=== PATIENT | male | born 1975 | race Caucasian/White ===

== ENCOUNTER 2024-06-13 14:44 | Emergency (ER) | payer MEDICAID, SELFPAY ==
--- NOTE | ~2024-06-13 | XR_ITS ---
EXAMINATION: XR KNEE, BILATERAL CLINICAL INFORMATION: Knee pain COMPARISON: None available. TECHNIQUE: Two views of each knee. FINDINGS: Moderate medial and mild patellofemoral/lateral compartment osteoarthritis of both knees, with moderate left greater than right knee joint effusions. No fracture. XR/XR knee RT 2V IMPRESSION: Moderate medial and mild patellofemoral/lateral compartment osteoarthritis of both knees with knee joint effusions. No fracture. Electronically signed by: Phill Levi MD 06/13/2024 07:07 PM [facility]
--- NOTE | ~2024-06-13 | XR_ITS ---
EXAMINATION: XR KNEE, BILATERAL CLINICAL INFORMATION: Knee pain COMPARISON: None available. TECHNIQUE: Two views of each knee. FINDINGS: Moderate medial and mild patellofemoral/lateral compartment osteoarthritis of both knees, with moderate left greater than right knee joint effusions. No fracture. XR/XR knee LT 2V IMPRESSION: Moderate medial and mild patellofemoral/lateral compartment osteoarthritis of both knees with knee joint effusions. No fracture. Electronically signed by: Phill Levi MD 06/13/2024 07:07 PM [facility]
[2024-06-13 14:45] VITALS: BP 181/104; PULSE 96; RESP 16; TEMP 37.6; O2SAT 93; BMI 49.6
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
--- OUTSIDE RECORDS SUMMARY | 2024-06-13 15:39 | XMS_ITS | Data Portability ---
Author Organization [facility], , [facility] Address [address] [place] [address] Care Team Providers Care Court Clerk Name Role Phone PATRICIONILESHWESTON Primary Care Provider [phone] SARWAT PEREZ Power Crane Operator Unavailable SAUL SCHUMACHER Power Crane Operator Unavailabl e Assessment Encounter Date Assessment Date Assessment LastModified by Organization Details LastModified Time 05/08/2014 05/08/2014 ingrown toenail lateral border right hallux jerskine Not available 05/08/2014 11:29:36 Plan of Treatment Reminders Order Date Submit Date Provider Last Modified By Organization Details Last Modified Time Details Appointments None recorded. Lab urinalysi s, complete 2014 015 [facility], [address] [place] [address], [address], 5 14:37:44 CMP, serum or plasma 2014 015 [facility], [address] [place] [address], [address], 5 11:15:51 lipid panel, serum 2014 015 [facility], [address] [place] [address], [address], 5 11:15:52 TSH, serum or plasma 2014 015 [facility], [address] [place] [address], [address], 5 11:27:53 CBC 2014 015 [facility], [address] [place] [address], [address], 5 10:16:01 BMP, serum or plasma 2014 015 [facility], [address] [place] [address], [address], 5 12:50:04 culture, bacterial - right great toe infection 2014 015 [facility], [address] [place] [address], [address], 5 11:47:38 Referral podiatris t referral - right hallux appears ingrown. 2013 014 rtorromer Wu DPM, [address], [place], [address], 4 14:22:18 sleep medicine referral - morbidly obese, daily headaches , snoring with witnessed apneic events at home. New diagnosis of HTN. Please evaluate and treat for possible CARLYN. [address] [facility], [address] [facility], [facility] [address], [place], [address], 5 08:17:23 podiatris t referral - Pt known to you with right great ingrown toenail resection that never healed completel y, but then was injured. Pt now has significa nt swelling, pain and drainage from surgical site. Please evaluate and treat. Imaging ordered to r/o osteomyel itis. 2014 015 kashif Wu DPNed, [address], [place], [address], 5 10:37:01 Procedures None recorded. Surgeries None recorded. Imaging x-ray, great toe - right great toe infected , swollen and tender- r/o osteomyel itis 2014 015 [facility] (Imaging), [address], [place], [address], 5 08:29:30 Medication Orders hydrochlo rothiazid e 25 mg tablet 2014 015 [id number] [address] [place], [address], 5 10:16:01 hydrochlo rothiazid e 25 mg tablet 2014 015 [id number], [address] [place], [address], 5 18:37:23 Bactrim DS 800 mg-160 mg tablet 2014 015 [id number], [address] [place], [address], 5 18:09:09 Patient TargetsNo targets recorded. Patient Instructions Encounter Date Encounter Id Patient Instructions Last Modified By Organization Details Last Modified Time 05/08/2014 [id number] Patient to retur n in one week. jerskine Not available 05/08/2014 11:29:36 Reason for Referral Business Assistant Referral for Pain in toe right hallux appears ingrown. Referring Physician: Weston Rodgers, Family Medicine, Encounter Date: 04/17/2014 morbidly obese, daily headac hes, snoring with witnessed apneic events at home. New diagnosis of HTN. Please evaluate and treat for possible CARLYN. Referring Physician: Melita Dorado [facility], Encounter Date: 08/21/2014 Business Assistant Referral for Cell ulitis and abscess of toe Pt known to you with right great ingrown toenail resection that never healed completely, but then was injured. Pt now has significant swelling, pain and drainage from surgical site. Please evaluate and treat. Imaging ordered to r/o osteomyelitis. Referring Physician: Melita Dorado [facility], Encounter Date: 10/19/2014 Results Created Date Observation Date Name Description Value Unit Range Abnormal Flag Note LastModifiedBy Organization Detail LastModifiedTime 08/22/19 15 08/22/2014 urina lysis compl ete, refle x cultu re color YELLOW yellow normal Not Available [facility] [place] [facility] [address], [place], [address], 08/22/2014 08:10:08 08/22/19 15 08/22/2014 urina lysis compl ete, refle x cultu re appearance CLEAR clear normal Not Available [facility] [place] [facility] [address], [place], [address], 08/22/2014 08:10:08 08/22/19 15 08/22/2014 urina lysis compl ete, refle x cultu re specific gravity 1.005 1.001- 1.035 normal Not Available [facility] [place] [facility] [address], [place], [address], 08/22/2014 08:10:08 08/22/19 15 08/22/2014 urina lysis compl ete, refle x cultu re pH 7.0 5.0-8. 0 normal Not Available [facility]- [address], [place], [address], 08/22/2014 08:10:08 08/22/19 15 08/22/2014 urina lysis compl ete, refle x cultu re glucose NEGATI VE negati ve normal Not Available [facility] [place] [facility] [address], [place], [address], 08/22/2014 08:10:08 08/22/19 15 08/22/2014 urina lysis compl ete, refle x cultu re bilirubin NEGATI VE negati ve normal Not Available [facility] [place] [facility] [address], [place], [address], 08/22/2014 08:10:08 08/22/19 15 08/22/2014 urina lysis compl ete, refle x cultu re ketones NEGATI VE negati ve normal Not Available [facility] [place] [facility] [address], [place], [address], 08/22/2014 08:10:08 08/22/19 15 08/22/2014 urina lysis compl ete, refle x cultu re occult blood NEGATI VE negati ve normal Not Available [facility] [place] [facility] [address], [place], [address], 08/22/2014 08:10:08 08/22/19 15 08/22/2014 urina lysis compl ete, refle x cultu re protein NEGATI VE negati ve normal Not Available [facility] [place] [facility] [address], [place], [address], 08/22/2014 08:10:08 08/22/19 15 08/22/2014 urina lysis compl ete, refle x cultu re nitrite NEGATI VE negati ve normal Not Available [facility] [place] [facility] [address], [place], [address], 08/22/2014 08:10:08 08/22/19 15 08/22/2014 urina lysis compl ete, refle x cultu re leukocyte esterase NEGATI VE negati ve normal Not Available [facility] [place] [facility] [address], [place], [address], 08/22/2014 08:10:08 08/22/19 15 08/22/2014 urina lysis compl ete, refle x cultu re WBC NONE SEEN /hpf < or = 5 normal Not Available [facility] [place] [facility] [address], [place], [address], 08/22/2014 08:10:08 08/22/19 15 08/22/2014 urina lysis compl ete, refle x cultu re RBC NONE SEEN /hpf < or = 2 normal Not Available [facility] [place] [facility] [address], [place], [address], 08/22/2014 08:10:08 08/22/19 15 08/22/2014 urina lysis compl ete, refle x cultu re squamous epithelial cells NONE SEEN /hpf < or = 5 normal Not Available [facility] [place] [facility] [address], [place], [address], 08/22/2014 08:10:08 08/22/19 15 08/22/2014 urina lysis compl ete, refle x cultu re bacteria NONE SEEN /hpf none seen normal Not Available [facility] [place] [facility] [address], [place], [address], 08/22/2014 08:10:08 08/22/19 15 08/22/2014 urina lysis compl ete, refle x cultu re hyaline cast NONE SEEN /lpf none seen normal Not Available [facility] [place] [facility] [address], [place], [address], 08/22/2014 08:10:08 08/22/19 15 08/22/2014 cultu re, urine reflexive urine culture NO CULTUR E INDICA BRAULIO Not Available [facility] [place] [facility] [address], [place], [address], 08/22/2014 08:10:11 08/22/19 15 08/22/2014 CBC WBC 10.8 K/??L 4.2-9. 1 high Not Available [address], [address], 08/22/2014 08:50:34 08/22/19 15 08/22/2014 CBC RBC 5.19 M/??L 4.63-6 .08 Not Available [address], [address], 08/22/2014 08:50:34 08/22/19 15 08/22/2014 CBC HGB 16.7 g/dL 13.7-1 7.5 Not Available [address], [address], 08/22/2014 08:50:34 08/22/19 15 08/22/2014 CBC HCT 50.1 % 40.1-5 1.0 Not Available [address], [address], 08/22/2014 08:50:34 08/22/19 15 08/22/2014 CBC MCV 96.5 ??L 79.0-9 2.2 high Not Available [address], [address], 08/22/2014 08:50:34 08/22/1908/22/2014 CBC MCH 32.2 pg 25.7-3 2.2 Not Available [address], [address], 08/22/2014 08:50:34 08/22/19 15 08/22/2014 CBC MCHC 33.3 g/dL 32.3-3 6.5 Not Available [address], [address], 08/22/2014 08:50:34 08/22/1908/22/2014 CBC plt 395.0 K/??L 163.0- 337.0 high Not Available [address], [address], 08/22/2014 08:50:34 08/22/1908/22/2014 CBC MPV 10.7 9.4-12 .4 Not Available [address], [address], 08/22/2014 08:50:34 08/22/1908/22/2014 CBC neut% 64.0 % 34.0-6 7.9 Not Available [address], [address], 08/22/2014 08:50:34 08/22/1908/22/2014 CBC neut# 6.9 1.8-5. 4 high Not Available [address], [address], 08/22/2014 08:50:34 08/22/19 15 08/22/2014 CBC lymph % 27.4 % 21.8-5 3.1 Not Available [address], [address], 08/22/2014 08:50:34 08/22/19 15 08/22/2014 CBC lymph # 3.0 K/??L 1.3-3. 6 Not Available [address], [address], 08/22/2014 08:50:34 08/22/19 15 08/22/2014 CBC mono% 6.3 % 5.3-12 .2 Not Available [address], [address], 08/22/2014 08:50:34 08/22/19 15 08/22/2014 CBC mono# 0.7 0.3-0. 8 Not Available [address], [address], 08/22/2014 08:50:34 08/22/19 15 08/22/2014 CBC eo% 1.9 % 0.8-7. 0 Not Available [address], [address], 08/22/2014 08:50:34 08/22/1908/22/2014 CBC eo# 0.2 0.0-0. 5 Not Available [address], [address], 08/22/2014 08:50:34 08/22/19 15 08/22/2014 CBC baso% 0.4 % 0.2-1. 2 Not Available [address], [address], 08/22/2014 08:50:34 08/22/19 15 08/22/2014 CBC baso# 0.0 0.0-0. 1 low Not Available [address], [address], 08/22/2014 08:50:34 08/22/19 15 08/22/2014 CBC RDW-CV 13.1 % 11.6-1 4.4 Not Available [address], [address], 08/22/2014 08:50:34 08/22/19 15 08/22/2014 CMP, serum or plasm a glucose 93 mg/dL 70-100 Not Available [address], [address], 08/22/2014 11:15:51 08/22/19 15 08/22/2014 CMP, serum or plasm a BUN 10 mg/dL 7-18 Not Available [address], [address], 08/22/2014 11:15:51 08/22/19 15 08/22/2014 CMP, serum or plasm a creatinine 1.0 mg/dL 0.8-1. 3 Not Available [address], [address], 08/22/2014 11:15:51 08/22/19 15 08/22/2014 CMP, serum or plasm a B/C 10.0 ratio Not Available [address], [address], 08/22/2014 11:15:51 08/22/19 15 08/22/2014 CMP, serum or plasm a GFR 88.0 mL/mi n Recom lula d GFR by the Natio nal Kidne y Found ation >60 mL/mi n/1.7 3m2 - Monserrat l <60 mL/mi n/1.7 3m2 - Chron ic Kidne y Disea se <15 mL/mi n/1.7 3m2 - Kidne y Failu re Not Available [address], [address], 08/22/2014 11:15:51 08/22/19 15 08/22/2014 CMP, serum or plasm a GFR - if 106.4 mL/mi n For Afric an Ameri can patie nts: Resul ts Multi plied by 1.21 Not Available [address], [address], 08/22/2014 11:15:51 08/22/19 15 08/22/2014 CMP, serum or plasm a sodium 142 mmol/ L 136-14 5 Not Available [address], [address], 08/22/2014 11:15:51 08/22/19 15 08/22/2014 CMP, serum or plasm a potassium 4.4 mmol/ L 3.5-5. 1 Not Available [address], [address], 08/22/2014 11:15:51 08/22/19 15 08/22/2014 CMP, serum or plasm a chloride 102 mmol/ L 96-107 Not Available [address], [address], 08/22/2014 11:15:51 08/22/19 15 08/22/2014 CMP, serum or plasm a anion gap 10.2 5.0-15 .0 Not Available [address], [address], 08/22/2014 11:15:51 08/22/19 15 08/22/2014 CMP, serum or plasm a CO2 30 mmol/ L 21-32 Not Available [address], [address], 08/22/2014 11:15:51 08/22/19 15 08/22/2014 CMP, serum or plasm a calcium 10.0 mg/dL 8.5-10 .3 Not Available [address], [address], 08/22/2014 11:15:51 08/22/19 15 08/22/2014 CMP, serum or plasm a total protein 7.8 g/dL 6.4-8. 2 Not Available [address], [address], 08/22/2014 11:15:51 08/22/19 15 08/22/2014 CMP, serum or plasm a albumin 4.3 g/dL 3.4-5. 0 Not Available [address], [address], 08/22/2014 11:15:51 08/22/19 15 08/22/2014 CMP, serum or plasm a globulin 3.5 g/dL Not Available [address], [address], 08/22/2014 11:15:51 08/22/19 15 08/22/2014 CMP, serum or plasm a A/G 1.2 ratio 0.8-2. 0 Not Available [address], [address], 08/22/2014 11:15:51 08/22/19 15 08/22/2014 CMP, serum or plasm a total bilirubin 0.50 mg/dL 0.00-1 .00 Not Available [address], [address], 08/22/2014 11:15:51 08/22/19 15 08/22/2014 CMP, serum or plasm a AST 23 U/L 15-37 Not Available [address], [address], 08/22/2014 11:15:51 08/22/19 15 08/22/2014 CMP, serum or plasm a ALT 46 U/L 30-65 Not Available [address], [address], 08/22/2014 11:15:51 08/22/19 15 08/22/2014 CMP, serum or plasm a alk. phos. 74 U/L 50-136 Not Available [address], [address], 08/22/2014 11:15:51 08/22/19 15 08/22/2014 lipid panel , serum cholesterol 234 mg/dL <200 mg/dl Leonid able 200-2 39 mg/dl Borde rline High >240 mg/dl High Not Available [address], [address], 08/22/2014 11:15:52 08/22/19 15 08/22/2014 lipid panel , serum triglyceride s 166 mg/dL <150 mg/dL Monserrat l 150-1 99 mg/dL Borde rline High 200-4 99 mg/dL High >500 mg/dL Very High Not Available [address], [address], 08/22/2014 11:15:52 08/22/19 15 08/22/2014 lipid panel , serum direct HDL 46 mg/dL Not Available [address], [address], 08/22/2014 11:15:52 08/22/19 15 08/22/2014 LDL, direc t, serum direct LDL 158 mg/dL RISK CATEG ORY LDL GOAL _ CHD or CHD Risk Equiv alent s <100 mg/dl (10-y ear risk >20%) 2+ Risk Facto rs <130 mg/dl (10-y ear risk <= 20%) 0-1 Risk Facto r??? <160 mg/dl ??? Almos t all peopl e with 0-1 risk facto r have a 10 year risk <10%, thus 10 year risk asses ment in peopl e with 0-1 risk facto r is not neces serafin. Not Available [address], [address], 08/22/2014 11:15:53 08/22/19 15 08/22/2014 TSH, serum or plasm a TSH 5.85 uIU/m L 0.50-6 .00 The Ameri can Colle ge of Endoc rinol ogy and Ameri can Thyro id Assoc iatio n recom mend goal TSH value s betwe en 0.4-4 .0 mIU/m L. Not Available [address], [address], 08/22/2014 11:27:53 10/18/19 15 10/17/2014 CBC WBC 7.3 K/??L 4.2-9. 1 Not Available [address], [address], 10/17/2014 11:08:41 10/18/19 15 10/17/2014 CBC RBC 5.19 M/??L 4.63-6 .08 Not Available [address], [address], 10/17/2014 11:08:41 10/18/19 15 10/17/2014 CBC HGB 16.0 g/dL 13.7-1 7.5 Not Available [address], [address], 10/17/2014 11:08:41 10/18/19 15 10/17/2014 CBC HCT 48.6 % 40.1-5 1.0 Not Available [address], [address], 10/17/2014 11:08:41 10/18/19 15 10/17/2014 CBC MCV 93.6 ??L 79.0-9 2.2 high Not Available [address], [address], 10/17/2014 11:08:41 10/18/19 15 10/17/2014 CBC MCH 30.8 pg 25.7-3 2.2 Not Available [address], [address], 10/17/2014 11:08:41 10/18/19 15 10/17/2014 CBC MCHC 32.9 g/dL 32.3-3 6.5 Not Available [address] [place], [address], 10/17/2014 11:08:41 10/18/19 15 10/17/2014 CBC plt 360.0 K/??L 163.0- 337.0 high Not Available [address], [address], 10/17/2014 11:08:41 10/18/19 15 10/17/2014 CBC MPV 10.5 9.4-12 .4 Not Available [address], [address], 10/17/2014 11:08:41 10/18/19 15 10/17/2014 CBC neut% 54.8 % 34.0-6 7.9 Not Available [address], [address], 10/17/2014 11:08:41 10/18/19 15 10/17/2014 CBC neut# 4.0 1.8-5. 4 Not Available [address], [address], 10/17/2014 11:08:41 10/18/19 15 10/17/2014 CBC lymph % 33.5 % 21.8-5 3.1 Not Available [address], [address], 10/17/2014 11:08:41 10/18/19 15 10/17/2014 CBC lymph # 2.4 K/??L 1.3-3. 6 Not Available [address], [address], 10/17/2014 11:08:41 10/18/19 15 10/17/2014 CBC mono% 8.8 % 5.3-12 .2 Not Available [address], [address], 10/17/2014 11:08:41 10/18/19 15 10/17/2014 CBC mono# 0.6 0.3-0. 8 Not Available [address], [address], 10/17/2014 11:08:41 10/18/19 15 10/17/2014 CBC eo% 2.5 % 0.8-7. 0 Not Available [address], [address], 10/17/2014 11:08:41 10/18/19 15 10/17/2014 CBC eo# 0.2 0.0-0. 5 Not Available [address], [address], 10/17/2014 11:08:41 10/18/19 15 10/17/2014 CBC baso% 0.4 % 0.2-1. 2 Not Available [address], [address], 10/17/2014 11:08:41 10/18/19 15 10/17/2014 CBC baso# 0.0 0.0-0. 1 low Not Available [address], [address], 10/17/2014 11:08:41 10/18/19 15 10/17/2014 CBC RDW-CV 12.9 % 11.6-1 4.4 Not Available [address], [address], 10/17/2014 11:08:41 10/18/19 15 10/17/2014 T4, free, serum free T4 0.79 NG/dL 0.75-1 .54 Not Available [address], [address], 10/17/2014 12:14:09 10/18/19 15 10/17/2014 TSH, serum or plasm a TSH 3.80 uIU/m L 0.50-6 .00 The Ameri can Colle ge of Endoc rinol ogy and Ameri can Thyro id Assoc iatio n recom mend goal TSH value s betwe en 0.4-4 .0 mIU/m L. Not Available [address] [place], [address], 10/17/2014 12:14:09 10/18/19 15 10/17/2014 BMP, serum or plasm a glucose 86 mg/dL 70-100 Not Available [address], [address], 10/17/2014 12:18:22 10/18/19 15 10/17/2014 BMP, serum or plasm a BUN 17 mg/dL 7-18 Not Available [address], [address], 10/17/2014 12:18:22 10/18/19 15 10/17/2014 BMP, serum or plasm a creatinine 0.9 mg/dL 0.8-1. 3 Not Available [address], [address], 10/17/2014 12:18:22 10/18/19 15 10/17/2014 BMP, serum or plasm a B/C 18.9 ratio Not Available [address], [address], 10/17/2014 12:18:22 10/18/19 15 10/17/2014 BMP, serum or plasm a GFR 99.3 mL/mi n Recom lula d GFR by the Natio nal Kidne y Found ation >60 mL/mi n/1.7 3m2 - Monserrat l <60 mL/mi n/1.7 3m2 - Chron ic Kidne y Disea se <15 mL/mi n/1.7 3m2 - Kidne y Failu re Not Available [address], [address], 10/17/2014 12:18:22 10/18/19 15 10/17/2014 BMP, serum or plasm a GFR - if 120.2 mL/mi n For Afric an Ameri can patie nts: Resul ts Multi plied by 1.21 Not Available [address], [address], 10/17/2014 12:18:22 10/18/19 15 10/17/2014 BMP, serum or plasm a sodium 143 mmol/ L 136-14 5 Not Available [address], [address], 10/17/2014 12:18:22 10/18/19 15 10/17/2014 BMP, serum or plasm a potassium 4.4 mmol/ L 3.5-5. 1 Not Available [address], [address], 10/17/2014 12:18:22 10/18/19 15 10/17/2014 BMP, serum or plasm a chloride 103 mmol/ L 96-107 Not Available [address], [address], 10/17/2014 12:18:22 10/18/19 15 10/17/2014 BMP, serum or plasm a anion gap 10.8 5.0-15 .0 Not Available [address], [address], 10/17/2014 12:18:22 10/18/19 15 10/17/2014 BMP, serum or plasm a CO2 29 mmol/ L 21-32 Not Available [address], [address], 10/17/2014 12:18:22 10/18/19 15 10/17/2014 BMP, serum or plasm a calcium 9.3 mg/dL 8.5-10 .3 Not Available [address], [address], 10/17/2014 12:18:22 10/20/19 15 10/26/2014 cultu re, aerob ic + anaer obic culture, anaerobic bacteria w/gram stain CULTU RE, ANAER OBIC BACTE SOPHIA W/GRA M STAIN MICRO NUMBE R: [id number] TEST STATU S: FINAL SPECI MEN SOURC E: RIGHT GREAT TOE INFEC TION SPECI MEN QUALI TY: ADEQU ATE GRAM STAIN : Rare Gram posit sascha cocci Rare Gram posit sascha cocci in clust ers No white blood cells seen RESUL T: Moder ate growt h of Pepto strep tococ cus sp. Moder ate growt h of Prevo tella speci es Susce ptibi lity testi ng is not routi gillian perfo rmed on anaer obic isola laura. Conta ct the labor atory withi n three days if addit ional testi ng is requi red. Prevo tella sp. ----- ----- ----- - INT SUZETTE BETA LACTA GAVIOTA Negat sascha THERA PY COMME NTS Beta lacta gaviota posit ivity predi cts resis tance to many penic illin s. Not Available [facility] [place] [facility] [address] [place], [place], [address], 10/26/2014 08:30:33 10/20/19 15 10/26/2014 cultu re, aerob ic + anaer obic culture, aerobic bacteria abnormal CULTU RE, AEROB IC BACTE SOPHIA MICRO NUMBE R: [id number] TEST STATU S: FINAL SPECI MEN SOURC E: RIGHT GREAT TOE INFEC TION SPECI MEN QUALI TY: ADEQU ATE RESUL T: Heavy growt h of Methi cilli n resis tant Staph yloco ccus aureu s (MRSA ) Negat sascha for induc ible clind amyci n resis tance . Moder ate growt h of Group B Strep tococ cus isola braulio Beta- hemol ytic Strep tococ ci are predi ctabl y susce ptibl e to penic illin and other beta- lacta ms. Susce ptibi lity testi ng not routi gillian perfo rmed. COMME NT: Skin eric also prese nt. MRSA ----- ----- ----- - INT SUZETTE AMOX/ CLAVU LANAT E R NR AMP/S ULBAC LISA R NR CIPRO FLOXA YOLIS S <1 CLIND AMYCI N S <0.25 ERYTH ROMYC IN R >4 GENTA MICIN S <1 LEVOF LOXAC IN S <0.5 OXACI LLIN R NR 1 TETRA CYCLI NE S <1 TRIME THOPR IM/GARCIA LFA S <0.5/ 9.5 VANCO MYCIN S 2 S=Kimberly cepti ble I=Int ermed iate R=Res istan t * = Not Teste d NR = Not Repor braulio NN = See Thera py Comme nts THERA PY COMME NTS Note 1: Oxaci llin- resis tant staph yloco cci are resis tant to all curre ntly avail able beta- lacta m antim icrob ial agent s inclu ding penic illin s, beta lacta m/bet a- lacta gaviota inhib itor combi natio ns, and cephe ms with staph yloco ccal indic ation s, inclu ding Cefaz jackelyn. Not Available [facility] [place] [facility] [address], [place], [address], 10/26/2014 08:30:33 10/21/19 15 10/19/2014 x-ray , great toe OBSERV ATION: Right great toe 3 views No compar soledad Cortic al margin along the latera l aspect of the tuft of the distal phalan x is indist inct and the possib ility of mild erosio n defini tely must be consid ered; this may be a sign of osteom yeliti s. The rest of the toe is unrema rkable No signs of trauma or tumor No opaque foreig n bodies Impres hayden findin gs sugges tive of osteom yeliti s involv ing the latera l side of the tuft of the distal phalan x Code 65712 Electr onical ly signed Hadley mobley Physic marion: Ray collins MD [facility] (Imaging) [address], [place], [address], 05/30/2015 04:00:56 10/25/19 15 10/20/2014 imagi ng/di agnos tic resul t No observ ation record ed. [facility] [address], [place], [address], 10/26/2014 22:30:46 07/17/19 16 07/09/2015 imagi ng/di agnos tic resul t No observ ation record ed. [email or web address] Not Available 08/2015 09:05:06 Result Notes None recorded. Problems Name Problem SNOMED Code Status Onset Date Resolution Date Notes Provider Name and Address Organization Details Recorded Time Headache 86227656 Active Not Available Pending sale to [facility] 3 03:15:13 Neck pain 62255079 Completed 05/11/2013 Not Available Pending sale to [facility] 3 02:00:36 Hypertensi ve disorder 60520309 Active Chelle Melchor null, [facility] 5 15:48:18 Mixed hyperlipid emia 515894709 Active Tita Donaldson null, [facility] 5 09:05:06 Serum thyroid stimulatin g hormone level outside reference range 232678291 Active Melita Dorado PA-C [address] [place] [address], [id number] , [facility] 5 18:37:23 Problem Notes None recorded. Procedures Surgical History None recorded. Imaging Results Imaging Date Name Status LastModified by [facility] Details LastModified Time 10/19/2014 x-ray, great toe completed [facility] (Imaging) [address] , [place], [address], 05/30/2015 04:00:56 10/20/2014 imaging/diag nostic result completed [facility] [address] [place] [address], [id number], 10/26/2014 22:30:46 07/09/2015 imaging/diag nostic result completed [email or web address] Information not available 07/25/2015 09:05:06 Procedure Notes None recorded. Medical Equipment None Reported. Allergies No known drug allergies Medications Name Sig Start Date Stop Date Status Note LastModified by Organization Details LastModified Time Motrin 800 mg tablet active Take 1 tab Q8 hrs prn/p ain Not Available Not Available Not Available hydrocodone 5 mg-acetamino phen 500 mg tablet TAKE 1 TO 2 TABLETS BY MOUTH EVERY 4 TO 6 HOURS NEEDED *MAX 8/DAY* active Not Available Not Available No t Available codeine 10 mg-guaifenes in 100 mg/5 mL oral liquid Take 10 mL every 4 hours by oral route for 3 days. 12/05 completed Not Available Not Available Not Available hydrochlorot hiazide 25 mg tablet TAKE 1 TABLET BY MOUTH IN THE MORNING NO FURTHER REFILLS NEEDS [facility] 2018 active Not Available Not Available Not Avai lable ibuprofen 600 mg tablet TAKE 1 TAB BY MOUTH EVERY 6 HOURS NEEDED active Not Available Not Available No t Available Percocet 5 mg-325 mg tablet 08/31 completed Take 1 tab Q4-6h rs prn/p ain Not Available Not Available Not Available chlorhexidin e gluconate 4 % topical liquid use as body wash daily for a week. 2011 active Not Available Not Available Not Avai lable Bactrim DS 800 mg-160 mg tablet Take 1 tablet every 12 hours by oral route for 10 days. 2014 active Not Available Not Available Not Avai lable Motrin 600 mg active Not Available Not Availa ble Not Available multivitamin one daily active Not Available Not Available No t Available Vicodin 5 mg-300 mg tablet Take 1 tablet every 4 hours by oral route. active Not Available Not Available No t Available Vitals Date Recorded Body weight Heart rate Body mass index (BMI) Body height Systolic blood pressure Diastolic blood pressure Provider Name and Address Organization Details Last Updated DateTime 4 864039. 87766 g 88 /min 47.6 kg/m2 175.895 cm 134 mm[Hg] 84 mm[Hg] Leigha Le MA [facility] 4 13:47:21 Date Recorded Heart rate Systolic blood pressure Diastolic blood pressure Provider Name and Address Organization Details Last Updated DateTime 05/08/2014 93 /min 142 mm[Hg] 79 mm[Hg] Sita Andrews MA [facility] 05/08/2014 10:59:42 Date Recorded Body height Body mass index (BMI) Body weight Heart rate Systolic blood pressure Diastolic blood pressure Provider Name and Address Organization Details Last Updated DateTime 5 175.895 cm 46.8 kg/m2 445132. 833781 g 80 /min 160 mm[Hg] 110 mm[Hg] Mragoth Quintero MA [facility] 5 16:07:00 Date Recorded Heart rate Body weight Body mass index (BMI) Body height Systolic blood pressure Diastolic blood pressure Provider Name and Address Organization Details Last Updated DateTime 5 78 /min 062538. 34252 g 45.6 kg/m2 175.895 cm 124 mm[Hg] 88 mm[Hg] Estefany Bearden LPN [facility] 5 17:09:58 Date Recorded Body weight Heart rate Body mass index (BMI) Body height Systolic blood pressure Diastolic blood pressure Provider Name and Address Organization Details Last Updated DateTime 5 229745. 91737 g 80 /min 43.9 kg/m2 175.26 cm 132 mm[Hg] 82 mm[Hg] Brenna Muniz [facility] 5 16:42:00 Social History Question Answer Notes LastModified by Organizat ion Details LastModified Time Tobacco Smoking Status Never Smoker 09/07/14 shady Bearden LPN [facility] 09/07/2014 17:11:05 What Is Your Occupation? [id number] Information not available 05/08/2011 Does The Patient Have Difficulty Speaking [place]? No Information not available 04/28/2016 Does The Patient Have Difficulty Reading [place]ese? No Information not available 04/28/2016 Patient Has Health Care Proxy Signed And In Chart No Information Given 12/15/2012 Robert shawolidoro Information not available 09/18/2011 Sex: Unknown Functional Status None recorded. Mental Status None recorded. Family History Nothing Reported Notes:DM chol Medical History Condition Response Hyperlipidemia Y Hypertension Y Immunizations Vaccine Type Date Status Note Provider Nam e and Address Organization Details Recorded Time Td (adult), 5 Lf tetanus toxoid, preservative free, adsorbed 5 completed Not Available [facility] 07/09/2019 02:19:24 Past Encounters Encounter ID Performer Location Encounter Start Date Encounter Closed Date Diagnosis/Indication Diagnosis SNOMED-CT Code Diagnosis ICD10 Code [id number] [facility], OFFICE [address] [place] [address] 08/15/2009 09:18:47 08/15/2009 13:21:00 [id number] [facility], OFFICE [address] [place] [address] 08/31/2009 09:21:12 08/31/2009 10:05:07 [id number] EMMETT Villagomez, [facility], OFFICE [address] [place] [address] 09/10/2011 16:32:50 09/10/2011 17:16:40 [id number] ELLI Mederos, [facility], OFFICE [address] [place] [address] 09/19/2011 15:00:32 09/19/2011 15:45:32 [id number] ELLI Mederos, [facility], OFFICE [address] [place] [address] 12/03/2011 15:55:57 12/04/2011 09:27:54 [id number] EMMETT Villagomez, [facility], OFFICE [address] [place] [address] [place] [address] 12/15/2012 10:34:51 12/15/2012 11:19:27 [id number] Aisha WHITNEY [facility], OFFICE [address] [place] [address] [place] [address] 05/03/2013 08:48:43 05/03/2013 09:24:10 Neck pain [id number] Knee pain [id number] Montrell WHITNEY [facility], OFFICE [address] [place] [address] [place] [address] 04/17/2014 13:17:57 04/17/2014 14:15:06 Pain in toe [id number] [id number] Chelly Tyler Podiatry, [facility] [address] [place] [address] 05/08/2014 10:40:49 05/12/2014 10:25:31 Ingrowing nail 809985543 [id number] Aisha WHITNEY [facility], OFFICE [address] [place] [address] 08/21/2014 15:33:31 08/21/2014 16:35:22 Epistaxis 26861763 Hypertensive disorder 38 639964 Daytime somnolence 59786 67124 00 [id number] REINA Estrada, [facility], OFFICE [address] [place] [address] 09/07/2014 16:59:34 09/07/2014 17:58:31 Administration of diphtheria and tetanus vaccine 74875651 Hypertensive disorder 38 576446 Mixed hyperlipidemia 267 544318 Serum thyr oid stimulating hormone level outside reference range 597531241 [id number] Josiane WHITNEY, [facility], OFFICE [address] [place], [place] [id number] 10/19/2014 16:34:30 10/19/2014 17:08:43 Cellulitis and abscess of toe 954399951 Health Concerns Section Related Observation LastModified by Organization Detai ls LastModified Time None Recorded Concern Status LastModified by Organization Details LastModified Time None Recorded Advance Directives Directive None Recorded Payers Encounter Date Sequence Insurance Name Policy Number Policy Contreras Covered Member ID Contreras Member ID Guarantor Name 04/17/2014 1 [facility] [employer] (MEDICAID HMO) [id number] Stewart Ramsay [id number] Stewart Pattyler 05/08/2014 1 [facility] [employer] NET [employer] (MEDICAID HMO) [id number] Stewart Rush Pattyler [id number] Stewart Patry 08/21/2014 1 [facility] [employer] (MEDICAID HMO) [id number] Stewart Rush Pattyler [id number] Stewart Patry 09/07/2014 1 [facility] [employer] (MEDICAID HMO) [id number] Stewart Rush Pattyler [id number] Stewart Patry 10/19/2014 1 [facility] [employer] (MEDICAID HMO) [id number] Stewart Rush Pattyler [id number] Stewarttarun Ramsay Notes Date Note Type Note Provider Name and Address Organization Details Recorded Time 05/08/2014 text/html HPI Patient presents to the office complaining of infected ingrown toenail right big toe. Patient states he has been experiencing pain with swelling and drainage over the past several weeks. Patient states he has been soaking his toe, but symptoms persist.? Zion Wu DPM [address] [place] [address], [phone], [facility] 05/08/2014 11:29:47 08/21/2014 text/html Pt says he is no t feeling himself. He is feeling more tired than usual. He has been getting nosebleeds frequently over the last month. He is getting nosebleeds at least daily, sometimes more than once a day. He does not burn wood and does not use a humidifier. NO aspirin or OTC remedies. NO family hx of HTN he is aware of. NO nasal sprays or anything up the nose. He does snore. He gasps for air overnight and reports he pauses for a minute or so while breathing. tends to sleep face down. Declined previous work up for [employer]. Feels like since he hit 39 he is not himself and things are changing. He understands he is not as healthy as he need and needs to make some changes. Melita Dorado PA-C [address] [place] [address], [phone], [facility] 08/22/2014 10:16:02 09/07/2014 text/html He is being more consciousof what he puts in his body. He put the salt shaker away, cut back ETOH to a minimum, joined a gym an dis exercising more. He is no longer going out for lunch and is bringing a home lunch. He feels better and is making baby steps to advance the changes all the time. He is no longer getting nose bleeds. He has his [facility] eval September 21. Reviewed results but not messages. monitoring BP at home- was elevated in 150/100 range but recently getting 128/75, 140/86, 138/ 84. Melita Dorado PA-C [address] [place], [phone], [facility] 09/07/2014 18:37:30 10/19/2014 text/html He had an ingrow n toenail resected last year with Dr. Wu. He dropped a piece of wood on it and thinks that was the start of the downward spiral. he has been trying to care for it but it has just gotten worse. Now swollen, red, hot and draining pus. Toe is very tender and he would prefer to just cut it off. He says eh has to wear work boots all day and that has been challenging to manage the wound as well. He has gone through 2 tubes of Neosporin. NO fever. Melita Dorado PA-C [address] [place], [phone], [facility] 10/19/2014 18:09:09
[2024-06-13 16:18] VITALS: BP 144/81; PULSE 80; RESP 16; TEMP 36.4; O2SAT 93
[2024-06-13 18:05] VITALS: BP 150/90; PULSE 85; RESP 16; TEMP 37; O2SAT 96
[2024-06-13] MEDS: Ketorolac Tromethamine 30 MG/ML VIAL IM (18:13)
[2024-06-13 19:06] VITALS: BP 146/96
[2024-06-13 19:43] VITALS: BP 146/96; PULSE 74; RESP 18; TEMP 36.9; O2SAT 98
== END 2024-06-13 19:45 | disposition home or self-care (01) ==
PROVIDERS: Emergency Provider Emergency Medicine; PCP Internal Medicine
DX: M25.562 Pain in left knee (principal); M25.561 Pain in right knee; R03.0 Elevated blood-pressure reading, without diagnosis of hypertension
CPT/HCPCS: 73560; 96372; 99283; 99284; J1885

== ENCOUNTER 2024-07-15 11:32 | Outpatient (REF) | payer MEDICAID, SELFPAY ==
--- OUTSIDE RECORDS SUMMARY | 2024-07-15 13:45 | XMS_ITS | Data Portability ---
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 case. He ahs agreed to be tested. Lab workup as ordered. Plan BP recheck in 2 weeks. Daytime somnolence [id number] Discussed sleep apnea- what it is, the risks of having it and leaving it untreated. he felt compelled to be evaluated and treated after discussion . will refer and he will call to book appt. he seemed more serious and motivated about making changes. he recognizes he does not feel well and seemed genuinely concerned about reversing some of the risk present. [id number] Melita Dorado PA-C , [facility], OFFICE [address] [place] [id number] 09/07/2014 16:59:34 09/07/2014 17:58:31 Administration of diphtheria and tetanus vaccine [id number] Hypertensive disorder [id number] good control- improved today. continue low sodium diet and lifestyle changes. Sleep medicine eval planned in early September. Follow up with us in 3 months Mixed hyperlipidemia [id number] he has overhauled his diet and is going to the gym with his GF. we discussed dietary changes to be mindful of. will plan recheck in 3 months. lifestyle for now. no medication . Serum thyr oid stimulating hormone level outside reference range [id number] discussed findings. will repeat test first week of September- pt aware to come in for it. could also worsen CARLYN if thyroid unregulate d. [id number] Josiane WHITNEY, [facility], OFFICE [address] [place], [place] [id number] 10/19/2014 16:34:30 10/19/2014 17:08:43 Cellulitis and abscess of toe [id number] probiotics encouraged . warm soaks BID- keep covered with antibiotic ointment and bandage under a clean dry sock. take boots off when able. culture sent- fungal and bacterial. Bactrim DS started. Will try to get in with Dr. Bryce BANKS. Sending to x-ray to rule out osteomyeli tis. He does not want pain medication - nsaid, narcotic-- of any sort but was reminded that Tylenol or advil is fine to take, especially at for pain. Health Concerns Section Related Observation LastModified by Organization Detai ls LastModified Time None Recorded Concern Status LastModified by Organization Details LastModified Time None Recorded Advance Directives Directive None Recorded Payers Encounter Date Sequence Insurance Name Policy Number Policy Contreras Covered Member ID Contreras Member ID Guarantor Name 04/17/2014 1 [facility] [employer] (MEDICAID HMO) [id number] Stewart Ramsay [id number] Stewart Ramsay 05/08/2014 1 [facility] HE[facility] NET PLAN (MEDICAID HMO) [id number] Stewart Ramsay [id number] Stewart Ramsay 08/21/2014 1 [facility] [employer] (MEDICAID HMO) [id number] Stewart Ramsay [id number] Stewart Ramsay 09/07/2014 1 [facility] [employer] (MEDICAID HMO) [id number] Stewart Ramsay [id number] Stewart Patry 10/19/2014 1 [facility] [employer] (MEDICAID HMO) [id number] Stewart Ramsay [id number] Stewart Ramsay Notes Date Note Type Note Provider Name and Address Organization Details Recorded Time 05/08/2014 text/html HPI Patient presents to the office complaining of infected ingrown toenail right big toe. Patient states he has been experiencing pain with swelling and drainage over the past several weeks. Patient states he has been soaking his toe, but symptoms persist.? Zion Wu DPM [address] [place] [address], [place], [phone], [facility] 05/08/2014 11:29:47 08/21/2014 text/html Pt says he [...] to make some changes. Melita Dorado PA-C [address] [place], [phone], [facility] 08/22/2014 10:16:02 09/07/2014 text/html He is being [...] 140/86, 138/ 84. Melita Dorado PA-C [address] [place], [phone], [facility] 09/07/2014 18:37:30 10/19/2014 text/html He had an [...] of Neosporin. NO fever. Melita Dorado PA-C [address] [place] [address], [phone], [facility] 10/19/2014 18:09:09
== END 2024-07-15 11:33 | disposition home or self-care (01) ==
LOC: HO.HOSX 11:32
PROVIDERS: Visit Provider Physician Assistant
DX: Z13.89 Encounter for screening for other disorder (principal)

== ENCOUNTER 2024-07-18 10:06 | Outpatient (AMB) | payer MEDICAID, SELFPAY ==
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
[2024-07-18 10:23] VITALS: BMI 45.2
--- OUTSIDE RECORDS SUMMARY | 2024-07-18 14:40 | XMS_ITS | Data Portability ---
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 Discussed role of CARLYN elevating BP and strongly suspect CARLYN in his case. He ahs agreed to be tested. Lab workup as ordered. Plan BP recheck in 2 weeks. Daytime somnolence [id number] Discussed sleep apnea- what it is, the risks of having it and leaving it untreated. he felt compelled to be evaluated and treated after discussion . will refer and he will call to book appt. he seemed more serious and motivated about making changes. he recognizes he does not feel well and seemed genuinely concerned about reversing some of the risk present. [id number] Melita Dorado PA-C , [facility], OFFICE [address] [place] [id number] 09/07/2014 16:59:34 09/07/2014 17:58:31 Administration of diphtheria and tetanus vaccine [id number] Hypertensive disorder [id number] good control- improved today. continue low sodium diet and lifestyle changes. Sleep medicine eval planned in early September. Follow up with us in 3 months Mixed hyperlipidemia [id number] he has overhauled his diet and is going to the gym with his GF. we discussed dietary changes to be mindful of. will plan recheck in 3 months. lifestyle for now. no medication . Serum thyr oid stimulating hormone level outside reference range [id number] discussed findings. will repeat test first week of September- pt aware to come in for it. could also worsen CARLYN if thyroid unregulate d. [id number] Josiane WHITNEY, [facility], OFFICE [address] [place], [place] [id number] 10/19/2014 16:34:30 10/19/2014 17:08:43 Cellulitis and abscess of toe [id number] probiotics encouraged . warm soaks BID- keep [...] Contreras Member ID Guarantor Name 04/17/2014 1 [facility] PLAN (MEDICAID HMO) [id number] Stewart Ramsay [id number] Stewart Ramsay 05/08/2014 1 [facility] NET PLAN (MEDICAID HMO) [id number] Stewart Ramsay [id number] Stewart Ramsay 08/21/2014 1 [facility] PLAN (MEDICAID HMO) [id number] Stewart Ramsay [id number] Stewart Ramsay 09/07/2014 1 [facility] PLAN (MEDICAID HMO) [id number] Stewart Ramsay [id number] Stewart Patry 10/19/2014 1 [facility] PLAN (MEDICAID HMO) [id number] Stewart Ramsay [id number] Stewart Ramsay Notes Date Note Type Note Provider Name and Address Organization Details Recorded Time 05/08/2014 text/html HPI Patient presents to the office complaining of infected ingrown toenail right big toe. Patient states he has been experiencing pain with swelling and drainage over the past several weeks. Patient states he has been soaking his toe, but symptoms persist.? Zion Wu DPM [address] [place] [address], [place], [phone], [facility] 05/08/2014 11:29:47 08/21/2014 text/html Pt says he [...] make some changes. Melita Dorado PA-C [address] [place], [phone], [facility] 08/22/2014 10:16:02 09/07/2014 text/html He is being [...] 140/86, 138/ 84. Melita Dorado PA-C [address] [place], [phone], [facility] 09/07/2014 18:37:30 10/19/2014 text/html He had an [...] of Neosporin. NO fever. Melita Dorado PA-C [address] [place] [address], [phone], [facility] 10/19/2014 18:09:09
== END 2024-07-18 11:24 | disposition home or self-care (01) ==
PROVIDERS: PCP Internal Medicine; Visit Provider Physician Assistant
DX: M17.0 Bilateral primary osteoarthritis of knee (principal)
CPT/HCPCS: 20610; 99204

== ENCOUNTER 2024-07-18 10:11 | Outpatient (REF) | payer MEDICAID, SELFPAY ==
--- NOTE | ~2024-07-18 | XR_ITS ---
CLINICAL HISTORY: M25.569 - Pain in unspecified knee Single sunrise view of the left knee. Comparison: June 13, 2024. Findings: Single sunrise view of the left knee is performed. Mild degenerative changes evident with areas of subcortical irregularity and osteophyte formation. No significant joint space narrowing. Impression: Mild patellofemoral joint DJD. This document has been electronically signed by: John Parrish MD on 07/18/2024 17:25:41
--- NOTE | ~2024-07-18 | XR_ITS ---
CLINICAL HISTORY: M25.562 - Pain in left knee Exam: AP and lateral views of the left knee. Comparison: June 13, 2024. Findings: Moderate to severe degenerative change of the medial compartment with joint space narrowing and osteophyte formation. [id number] degenerative change of the lateral compartment and patellofemoral joint with [id number] sized knee joint effusion. No fracture. Impression: Tricompartmental osteoarthritis, most pronounced within the medial compartment. This document has been electronically signed by: John Parrish MD on 07/18/2024 17:24:02
== END 2024-07-18 10:12 | disposition home or self-care (01) ==
LOC: HO.HOSX 10:11
PROVIDERS: Visit Provider Physician Assistant
DX: M25.562 Pain in left knee (principal); M25.561 Pain in right knee; M17.0 Bilateral primary osteoarthritis of knee
CPT/HCPCS: 20610; 73560; 99212

== ENCOUNTER → 2024-07-18 10:12 | Outpatient (BNV) | payer MEDICAID, SELFPAY | PROVIDERS: Visit Provider Radiology Diagnostic Radiology | DX: M17.12 Unilateral primary osteoarthritis, left knee (principal); M25.561 Pain in right knee | CPT/HCPCS: 73560 ==

== ENCOUNTER → 2024-07-22 14:45 | Outpatient (BNVA) | payer MEDICAID, SELFPAY | PROVIDERS: PCP Internal Medicine; Visit Provider Physician Assistant | DX: M17.0 Bilateral primary osteoarthritis of knee (principal) | CPT/HCPCS: 20610; 99212; J1010; J2003 ==